=== PATIENT | male | born 1975 | race Caucasian/White ===

== ENCOUNTER 2018-05-02 15:51 | Emergency (ER) | payer OTHER ==
[~2018-05-02] VITALS: Ht 177.8 cm; Wt 77.1 kg
[2018-05-02] MEDS ORDERED: TRAZ50 PO (16:05)
[2018-05-02] MEDS ORDERED: PARO20 PO (16:05)
[2018-05-02] MEDS ORDERED: CYCL10 PO (17:07)
[2018-05-02] MEDS ORDERED: KETO10 PO (17:07)
[2018-05-02] MEDS ORDERED: Cleocin HCl300 MG PO (17:07)
== END 2018-05-02 17:10 | disposition home or self-care (01) ==
LOC: ER 15:51
DX: M54.42 Lumbago with sciatica, left side (principal); K04.7 Periapical abscess without sinus; F32.9 Major depressive disorder, single episode, unspecified; Z79.899 Other long term (current) drug therapy
CPT/HCPCS: 72100; 72220; 99283-25

== ENCOUNTER 2018-05-08 23:13 | Emergency (ER) | payer OTHER ==
[~2018-05-08] VITALS: Ht 177.8 cm; Wt 74.8 kg
[~2018-05-08 23:13] MED LIST: CYCL10 PO; Cleocin HCl300 MG PO; KETO10 PO; PARO20 PO; TRAZ50 PO
[2018-05-08] MEDS ORDERED: PENVK500 PO (23:23)
[2018-05-08] MEDS ORDERED: METR500 PO (23:23)
[2018-05-09] MEDS ORDERED: IBUP400 PO (00:17)
== END 2018-05-09 00:25 | disposition home or self-care (01) ==
LOC: ER 23:13
DX: T21.22XA Burn of second degree of abdominal wall, initial encounter (principal); T31.0 Burns involving less than 10% of body surface; F41.9 Anxiety disorder, unspecified; F32.9 Major depressive disorder, single episode, unspecified; F17.200 Nicotine dependence, unspecified, uncomplicated; Z79.899 Other long term (current) drug therapy; X08.8XXA Exposure to other specified smoke, fire and flames, initial encounter
CPT/HCPCS: 16025; 99283-25

== ENCOUNTER 2018-05-13 15:12 | Emergency (ER) | payer OTHER ==
[~2018-05-13] VITALS: Ht 177.8 cm; Wt 77.1 kg
[~2018-05-13 15:12] MED LIST changes: +IBUP400 PO; +METR500 PO; +PENVK500 PO
[2018-05-13] MEDS ORDERED: NAPR550 PO (16:08)
== END 2018-05-13 16:14 | disposition home or self-care (01) ==
LOC: ER 15:12
DX: T21.02XA Burn of unspecified degree of abdominal wall, initial encounter (principal); T31.0 Burns involving less than 10% of body surface; X08.8XXA Exposure to other specified smoke, fire and flames, initial encounter; Z88.0 Allergy status to penicillin; Z88.8 Allergy status to other drugs, medicaments and biological substances; F41.9 Anxiety disorder, unspecified; Z87.891 Personal history of nicotine dependence
CPT/HCPCS: 99282

== ENCOUNTER 2018-05-27 11:56 | Emergency (ER) | payer OTHER ==
[~2018-05-27] VITALS: Ht 177.8 cm; Wt 74.8 kg
[~2018-05-27 11:56] MED LIST changes: +IBUP800 PO; +NAPR550 PO
[2018-05-27] MEDS ORDERED: PARO20 PO (13:17)
== END 2018-05-27 13:26 | disposition home or self-care (01) ==
LOC: ER 11:56
DX: T21.02XA Burn of unspecified degree of abdominal wall, initial encounter (principal); T31.0 Burns involving less than 10% of body surface; F32.9 Major depressive disorder, single episode, unspecified; Z79.899 Other long term (current) drug therapy; F41.9 Anxiety disorder, unspecified; F17.210 Nicotine dependence, cigarettes, uncomplicated; X08.8XXA Exposure to other specified smoke, fire and flames, initial encounter
CPT/HCPCS: 99282